=== PATIENT | female | born 2000 | race Caucasian/White ===

== ENCOUNTER 2021-04-21 13:39 | Emergency (ER) | payer BC ==
[~2021-04-21] VITALS: Ht 160 cm; Wt 54.4 kg
--- NOTE | 2021-04-21 13:39 | NUR ---
PT BIB SELF C/O VOMITING STARTED THIS MORNING. PT IS AAOX4, NOT IN RESPIRATORY DISTRESS, V/S STABLE, KEPT RESTED AND COMFORTABLE. WILL CONTINUE TO MONITOR.
--- NOTE | 2021-04-21 14:15 | NUR ---
Dr ESTRADA AT BEDSIDE
[2021-04-21] MEDS ORDERED: ONDANSETRON HCL/PF 4 MG/2 ML VIAL IVP ONE (14:30)
[2021-04-21] MEDS ORDERED: IV NS 0.9% 1,000 ML BAG IV ONE (14:30)
[2021-04-21] MEDS ORDERED: ONDANSETRON HCL/PF 4 MG/2 ML VIAL ONE (14:37)
[2021-04-21] MEDS ORDERED: MAG HYDROX/AL HYDROX/SIMETH 30 ML UDC ONE (15:28)
[2021-04-21] MEDS ORDERED: LIDOCAINE VISCOUS 2% UD 15 ML UDC ONE (15:28)
[2021-04-21] MEDS ORDERED: FAMOTIDINE/PF INJ 20 MG/2 ML VIAL IV ONE ×2 (15:29→15:30)
[2021-04-21] MEDS ORDERED: MAG HYDROX/AL HYDROX/SIMETH 30 ML UDC PO ONE (15:30)
[2021-04-21] MEDS ORDERED: LIDOCAINE VISCOUS 2% UD 15 ML UDC MM ONE (15:30)
[2021-04-21 15:42] LABS: BASOPHILS % (AUTO) 0.2 % (0.0-2.0); HEMATOCRIT 39 % (33-45); HEMOGLOBIN 13.1 g/dL (11.5-14.8); LYMPHOCYTES # (AUTO) 0.7 K/uL (0.8-4.8); LYMPHOCYTES % (AUTO) 7.6 % (20.0-44.0); MEAN CORPUSCULAR HGB CONC 34 g/dl (31.0-36.0); MEAN CORPUSCULAR VOLUME 92 fL (82-100); MONOCYTES # (AUTO) 0.4 K/uL (0.1-1.30); MONOCYTES % (AUTO) 4.3 % (2.0-12.0); NEUTROPHILS # (AUTO) 8.2 K/uL (1.8-8.9); NEUTROPHILS % (AUTO) 87.9 % (43.0-81.0); PLATELET COUNT (AUTO) 246 K/uL (150-450); RED BLOOD CELL COUNT(AUTO) 4.21 MIL/uL (4.0-5.2); WHITE BLOOD COUNT (AUTO) 9.3 K/uL (4.3-11.0)
[2021-04-21] MEDS ORDERED: ONDA4TAB5 PO (15:46)
[2021-04-21] MEDS ORDERED: FAMO-131 PO (15:46)
--- NOTE | 2021-04-21 15:50 | NUR ---
IV removed. Catheter intact and site benign. Pressure and 4x4 applied to site. No bleeding noted.
[2021-04-21 15:53] VITALS: BP 124/72
--- NOTE | 2021-04-21 15:53 | NUR ---
Patient does not wish to proceed with medical care recommended by Dr. Ibrahim. Patient given information related to possible complications, up to and including , which could occur as a result of leaving the hospital at this time. Patient verbalizes understanding of risks involved due to leaving against medical advice. Patient has signed AMA form.
[2021-04-21 15:57] LABS: CALCIUM, SERUM 9.1 mg/dL (8.5-10.1); CARBON DIOXIDE 22 mmol/L (21-32); CHLORIDE 109 mmol/L (98-107); CREATININE 0.6 mg/dL (0.6-1.3); GLUCOSE 88 mg/dL (74-106); POTASSIUM 3.9 mmol/L (3.5-5.1); SODIUM SERUM 145 mmol/L (136-145); UREA NITROGEN, BLOOD 11 mg/dL (7-18)
[2021-04-21 16:01] LABS: ALANINE AMINOTRANSFERASE 22 U/L (12-78); ALBUMIN 4.3 g/dL (3.4-5.0); ALKALINE PHOSPHATASE 65 U/L (46-116); ASPARTATE AMINOTRANSFERASE 22 U/L (15-37); BILIRUBIN,DIRECT 0.1 mg/dL (0.0-0.2); BILIRUBIN,TOTAL 0.4 mg/dL (0.2-1.0); LIPASE 72 U/L (73-393); TOTAL PROTEIN, SERUM 7.9 g/dL (6.4-8.2)
[2021-04-21 16:22] LABS: BILIRUBIN,URINE NEGATIVE (NEGATIVE); COLOR,URINE YELLOW (YELLOW); LEUKOCYTE ESTERASE ,URINE NEGATIVE (NEGATIVE); NITRITE, URINE NEGATIVE (NEGATIVE); PH,URINE 6.5 (5.0-8.0); PROTEIN,URINE NEGATIVE (NEGATIVE); UGLUCOSE NEGATIVE (NEGATIVE); UROBILINOGEN,URINE 0.2 EU/dL (0.2)
[2021-04-21 16:36] LABS: BACTERIA,URINE 1+ /HPF (None Seen); SQUAMOUS EPITHELIAL CELL,UR Few /HPF (None Seen); WBC,URINE 0-2 /HPF (0-3)
[2021-04-21 16:37] LABS: MUCUS,URINE Few /LPF (None Seen)
== END 2021-04-21 15:53 | disposition left against medical advice (07) ==
LOC: ER 13:42
DX: R11.2 Nausea with vomiting, unspecified (principal); F10.10 Alcohol abuse, uncomplicated; Y90.9 Presence of alcohol in blood, level not specified
CPT/HCPCS: 36415; 80048; 80076; 81001; 83690; 84484; 84703; 85025; 96361; 96374; 96375; 99284; J2405; J3490; J7030

== ENCOUNTER 2021-06-01 01:08 | Emergency (ER) | payer BC, MEDICAID ==
[~2021-06-01] VITALS: Ht 160 cm; Wt 54.4 kg
[~2021-06-01 01:08] MED LIST: FAMO-131 PO; ONDA4TAB5 PO
[2021-06-01] MEDS ORDERED: IV NS 0.9% 1,000 ML BAG IV ONE (02:00)
[2021-06-01] MEDS ORDERED: ONDANSETRON HCL/PF 4 MG/2 ML VIAL ONE (02:00)
[2021-06-01] MEDS ORDERED: ONDANSETRON HCL/PF 4 MG/2 ML VIAL IVP ONE (02:00)
--- NOTE | 2021-06-01 02:00 | NUR ---
PT BIBFAMILY FROM HOME C/O N/V SINCE YESTERDAY MORNING. NOT ABLE TO KEEP ANYTHING DOWN. PT AAO X 4, RESPIRATIONS UNLABORED. PT SEEN AND EXAMINED BY DR NEGRETE. PT ATTACHED TO MONITOR AND POX. WILL CARRY OUT MD ORDERS AND CONTINUE TO MONITOR. PT PROVIDED WITH EMESIS BAG AND KEPT COMFORTABLE.
--- NOTE | 2021-06-01 02:01 | NUR ---
IV LINE ESTABLISHED AT L HAND 22G
[2021-06-01] MEDS ORDERED: ONDA4TAB5 PO (02:04)
--- NOTE | 2021-06-01 02:35 | NUR ---
Patient discharged to home in stable condition. Written and verbal after care instructions given. Patient verbalizes understanding of instruction. Patient ambulatory with a steady gait.
[2021-06-01 02:57] VITALS: BP 107/66
== END 2021-06-01 02:35 | disposition home or self-care (01) ==
LOC: ER 01:27
DX: R11.2 Nausea with vomiting, unspecified (principal); Z79.899 Other long term (current) drug therapy
CPT/HCPCS: 96361; 96374; 99283; J2405; J7030

== ENCOUNTER 2021-09-28 04:35 | Emergency (ER) | payer BC, MEDICAID, OTHER ==
[~2021-09-28] VITALS: Ht 160 cm; Wt 55.8 kg
--- NOTE | 2021-09-28 05:00 | NUR ---
BFRIEND. NAUSEA AND VOMMITNG. THINKS THAT HER DRINK MIGHT BE SPIKED WITH SOMETHING. PLACED COMFORTABLY IN BED. VITALS CHECKED.
[2021-09-28] MEDS ORDERED: ONDANSETRON 4 MG TAB.RAPDIS ONE (05:08)
[2021-09-28] MEDS ORDERED: ONDANSETRON 4 MG TAB.RAPDIS SL ONE (05:30)
[2021-09-28] MEDS ORDERED: ONDANSETRON HCL/PF 4 MG/2 ML VIAL ONE (05:49)
--- NOTE | 2021-09-28 05:50 | NUR ---
BLOOD DRAWN BY [employer]AL [employer]OR
[2021-09-28] MEDS ORDERED: ONDANSETRON HCL/PF 4 MG/2 ML VIAL IM ONE (06:00)
--- NOTE | 2021-09-28 06:32 | NUR ---
PATIENT WANTS TO GO HOME COZ SHE FELT OK. SPOKE TO DR MELENDEZ. HE IS OK FOR THEM TO GO AND CALL FOR THE RESULTS LATER. PATIENT MADE AWARE.
[2021-09-28 06:34] VITALS: BP 98/64
== END 2021-09-28 06:35 | disposition home or self-care (01) ==
LOC: ER 04:46
DX: R11.2 Nausea with vomiting, unspecified (principal); Z79.899 Other long term (current) drug therapy
CPT/HCPCS: 99283; 96372; 36415; 80320; 80307; J2405; Q0162; G0480